=== PATIENT | female | born 2000 | race Caucasian/White ===

== ENCOUNTER → 2019-03-03 | Day surgery (SDC) | payer OTHER ==
[~2019-03-03] MED LIST: CHOL500016 PO; IV RINGERS,LACTATED 1000ML 1,000 ML IV SCH; L.AC1CAP6 PO; MAGN400C PO; MULT1TAB52 PO; PROPOFOL 40 ML IV ONE; RNA; [UNRECOGNIZED DRUG - OTHER]; [UNRECOGNIZED DRUG - OTHER]
--- NOTE | 2019-03-03 09:42 | HP ---
ADMIT DATE: 03/03/2019 REFERRING PHYSICIAN: Dr. Betty Fairchild. REASON FOR ADMISSION: Diarrhea and abdominal pain. HISTORY OF PRESENT ILLNESS: A 18-year-old female with past medical history significant for POTS syndrome, seen with persistent nausea, abdominal pain and diarrhea. She has had extensive workup and is here today with the family history of celiac disease with her mother and colon cancer with maternal grandfather for further evaluation. Weight has been stable despite poor appetite, diarrhea is intermittent in nature and often associated with intermittent constipation. No extraintestinal manifestations of inflammatory bowel disease or celiac are present at this time. With continued symptoms, she requests further workup. PAST MEDICAL HISTORY: POTS syndrome. ALLERGIES: IODINE. MEDICATIONS: Include vitamin D3, probiotics, magnesium, multivitamin, multiple enzymes. FAMILY AND SOCIAL HISTORY: Significant for colon cancer with her grandfather, celiac with her mother. REVIEW OF SYSTEMS: As per records. PHYSICAL EXAMINATION: GENERAL: Reveals a well-nourished, well-developed female who is alert, cooperative, in no acute distress. VITAL SIGNS: Temperature is 99.4, pulse is 100, respiratory rate 18, blood pressure is 100/60. HEENT: Normocephalic, atraumatic head. Pupils and extraocular muscles are not tested. Sclerae anicteric. NECK: Supple. LUNGS: Clear. CARDIOVASCULAR: Reveals an S1, S2 without S3, S4 or appreciable murmur. ABDOMEN: Reveals a soft abdomen, normal bowel sounds, without appreciable hepatosplenomegaly. EXTREMITIES: Reveals no cyanosis, clubbing or edema. IMPRESSION: Diarrhea with abdominal pain, etiology is to be determined; celiac disease; inflammatory bowel disease; malabsorption on the differential; family history of both celiac and colon cancer. Risks and benefits of procedures including risk of hemorrhage and perforation have been discussed. The patient is willing to proceed at this time. JOLYNN BURRELL MD DR: MARLENY/nanci JOB#: [id number] / [id number]
[2019-03-03 10:07] VITALS: BP 89/60
--- NOTE | 2019-03-04 18:06 | PATHOLOGY ---
[facility] Accession Number: [id number] . 01 Material submitted: . PART A: duodenum - DUODENAL BIOPSY PART B: colon - RANDOM COLON BIOPSIES . 01 Clinical history: . Abdominal pain, diarrhea . 02 Diagnosis: A. Duodenal biopsies: - No significant pathologic abnormalities. . B. Colonic mucosa, random colon biopsies: - No significant pathologic abnormalities, with multiple focally hyperplastic mucosal-associated lymphoid aggregates. . (JPM:grit removal operator; 03/04/2019) MBR 03/04/2019 1641 Local . 02 Comment: Sections of the duodenal biopsy reveal segments of duodenal and small intestine mucosa. Where best oriented, the mucosal villi show no sprue-like changes or significant inflammatory changes. . Sections of the random colon biopsy reveal multiple segments of colonic mucosa containing multiple, focally hyperplastic mucosal associated lymphoid aggregates. There is no evidence of a chronic destructive colitis, lymphocytic colitis, or collagenous colitis. . (JPM:grit removal operator; 03/04/2019) . 02 Electronically signed: . Chetan Chavis MD, Pathologist NPI- [id number] . 01 Gross description: . A. Received in formalin labeled "Angel Debby, duodenal BX, rule out celiac disease," are multiple segments of ryan soft tissue measuring 2.1 x 0.4 x 0.1 cm in aggregate dimensions. The specimen is filtered and entirely submitted in cassette A1. . B. Received in formalin labeled "Angel Debby, random colon biopsies," are multiple segments of ryan soft tissue measuring 2.4 x 0.7 x 0.1 cm in aggregate dimensions. The specimen is filtered and entirely submitted in cassette B1. (TSD; 03/03/2019) TOB/TOB 03/03/2019 1851 Local . 02 Pathologist provided ICD-10: R10.9, R19.7 . 02 CPT . 488152, 938385 Specimen Comment: A courtesy copy of this report has been sent to Specimen Comment: [phone], . Specimen Comment: Report sent to / DR EASLEY Performed at: 01 [facility] [address] [place] [address] [address], [place] [id number] MD Errol Kaur MD Phone: [phone] Performed at: 02 [facility] [address] [place], [place] [id number] MD Chetan Chavis MD Phone: [phone]
== END | disposition home or self-care (01) ==
LOC: SURG 08:35
PROVIDERS: ATTEND Internal Medicine Gastroenterology
DX: R19.7 Diarrhea, unspecified (principal); K31.89 Other diseases of stomach and duodenum; K64.0 First degree hemorrhoids; K63.89 Other specified diseases of intestine; I49.8 Other specified cardiac arrhythmias; Z91.040 Latex allergy status; Z91.041 Radiographic dye allergy status; Z79.899 Other long term (current) drug therapy; Z80.0 Family history of malignant neoplasm of digestive organs
CPT/HCPCS: 43239; 45380; 81025; 88305; J2704